=== PATIENT | male | born 1950 | race Caucasian/White ===

== ENCOUNTER → 2016-11-04 | Outpatient (CLI) | payer MEDICARE, OTHER ==
--- NOTE | 2016-11-04 15:57 | US ---
LOWER EXTREMITY VENOUS INSUFFICIENCY SIDE PERFORMED: Bilateral 1) Color flow is present and patency is documented in the following vessels. No DVT or SVT is noted . ? EIV ? Common Femoral Vein ? Deep Femoral Vein ? Femoral Vein ? Popliteal Vein ? Proximal Calf Veins ? Greater Saph Vein ? Upper Small Saph Vein 2) There is venous reflux noted at the following venous levels: Left EIV IMPRESSION: 1. Venous insufficiency at the left external iliac vein. 2. No deep venous thrombosis noted during this examination
--- NOTE | 2016-11-12 14:06 | P.ARTDOP ---
Arterial Doppler LOWER EXTREMITY ARTERIAL DOPPLER: DATE OF SERVICE: 11/04/2016 Reason for study: Left leg pain. Doppler waveforms: Multiphasic throughout bilaterally. Pulse volume recording: Normal configuration. Pressure gradients: None. Ankle-brachial indices: Greater than 1 bilaterally. Toe pressures: 135 on the right, 104 on the left Impression: Normal study.
== END | disposition home or self-care (01) ==
LOC: RADUSWWP 14:07
PROVIDERS: ATTEND Podiatrist
DX: I87.2 Venous insufficiency (chronic) (peripheral) (principal)
CPT/HCPCS: 93923; 93970

== ENCOUNTER 2017-11-25 11:21 | Day surgery (SDC) | payer MEDICARE, OTHER ==
[2017-11-19 13:36] VITALS: BMI 22.4
[~2017-11-25 11:21] MED LIST: DEXAMETHASONE SOD PHOSPHATE 10 MG/ML 1 ML VIAL IV ONE; LACTATED RINGERS 1,000 ML IV SCH; MORPHINE SULFATE 4 MG/0.8 ML SYRINGE (INJ) IV PRN; ONDANSETRON ODT 4 MG TAB PO ONE; ceFAZolin IN SWFI 2 GM/20 ML SYRINGE IVP ONE
--- NOTE | 2017-11-25 11:22 | P.GSHP ---
History of Present Illness H&P Date: 11/25/17 Chief Complaint: Left leg ulcer The patient has an ulcer on the lateral left lower leg which has been refractory to healing. - Constitutional Constitutional: Denies chills, Denies fever - EENT Eyes: denies blurred vision, denies pain Ears, nose, mouth and throat: Denies headache, Denies sore throat - Cardiovascular Cardiovascular: Denies chest pain, Denies shortness of breath - Respiratory Respiratory: Denies cough, Denies cough with sputum, Denies hemoptysis - Gastrointestinal Gastrointestinal: Denies abdominal pain, Denies coffee ground emesis, Denies diarrhea, Denies hematemesis, Denies jaundice, Denies nausea, Denies vomiting - Genitourinary (Female) Genitourinary: Denies dysuria, Denies hematuria - Genitourinary (Male) Genitourinary: Denies dysuria, Denies hematuria - Musculoskeletal Musculoskeletal: Denies myalgias - Integumentary Integumentary: Denies pruritus, Denies rash - Neurological Neurological: Denies numbness, Denies weakness - Psychiatric Psychiatric: Denies anxiety, Denies depression - Endocrine Endocrine: Denies fatigue, Denies weight change - Hematologic/Lymphatic Hematologic/Lymphatic: Denies easy bleeding, Denies easy bruising, Denies lymphedema - Allergic/Immunologic Allergic/Immunologic: Denies anaphylaxis, Denies angioedema, Denies urticaria Past Medical History Past Medical History: Musculoskeletal Disorder, Vascular Disorder Additional Past Medical History / Comment(s): left leg wound, has dressing toes to knees History of Any Multi-Drug Resistant Organisms: None Reported Past Surgical History: No Surgical Hx Reported Additional Past Surgical History / Comment(s): states left leg "vein stripping" left leg wound center procedures Past Anesthesia/Blood Transfusion Reactions: No Reported Reaction Smoking Status: Former smoker - Past Family History Mother Family Medical History: Diabetes Mellitus Father Family Medical History: Cancer Medications and Allergies Home Medications Medication Instructions Recorded Confirmed Type HYDROcodone/APAP 10-325MG [[place] 1 tab PO Q6H PRN 10/17/16 11/19/17 History 10-325] Meloxicam [Mobic] 15 mg PO DAILY 10/17/16 11/19/17 History Multivitamin [Men's Multi-Vitamin] 1 tab PO DAILY 03/17/17 04/19/18 History Thiamine [Vitamin B-1] 1 tab PO DAILY 10/17/16 11/19/17 History tiZANidine [Zanaflex] 4 mg PO Q6HR PRN 10/17/16 11/19/17 History traZODone HCL [Desyrel] 100 mg PO HS 10/17/16 11/19/17 History Lactose-Reduced Food [Ensure Plus] 1 can PO DAILY 07/17/17 11/19/17 History Allergies Allergy/AdvReac Type Severity Reaction Status Date / Time No Known Allergies Allergy Verified 11/19/17 13:30 Surgical - Exam Osteopathic Statement: *. No significant issues noted on an osteopathic structural exam other than those noted in the History and Physical/Consult. - General well developed, well nourished, no distress - Eyes normal ocular movement, no icteric - ENT no hearing loss, no congestion - Neck no masses, trachea midline - Respiratory normal respiratory effort, clear to auscultation - Abdomen Abdomen: soft, non tender, no guarding, no rigid, no rebound - Integumentary 3 x 1.5 cm ulcer lateral left lower leg no rash, no abnormal pigmentation - Neurologic no disoriented, no combative - Musculoskeletal normal gait, normal posture - Psychiatric oriented to time, oriented to person, oriented to place, speech is normal, memory intact Assessment and Plan (1) Ulcer of left lower extremity with fat layer exposed Status: Acute Code(s): L97.922 - NON-PRS CHR UL UNSP PRT OF L LOW LEG W FAT LAYER EXPOSED SNOMED Code(s): 24818730 Plan: Patient is admitted for split-thickness skin graft left lower leg.
[2017-11-25 11:59] VITALS: RESP 16; TEMP 97.9
[2017-11-25] MEDS ORDERED: LIDOCAINE 1% 20 ML VIAL (10MG/ML) FOR IV START INTRADERMA ONE (12:15)
[2017-11-25] MEDS ORDERED: LIDOCAINE 1% INJ 10MG/ML (20 ML MDV) ONE (13:05)
[2017-11-25] MEDS ORDERED: fentaNYL (PF) 50 MCG/ML 2 ML AMP ONE (13:05)
[2017-11-25] MEDS ORDERED: PROPOFOL 10 MG/ML 20 ML VIAL IV ONE (13:05)
[2017-11-25] MEDS ORDERED: MIDAZOLAM 2 MG/2 ML VIAL ONE (13:05)
--- NOTE | 2017-11-25 13:49 | P.PCN ---
Date of Procedure: 11/25/17 Preoperative Diagnosis: Chronic ulcer lateral left lower leg with fatty layer exposed Postoperative Diagnosis: Same Procedure(s) Performed: Split-thickness skin graft Anesthesia: MAC Surgeon: Uli Garcia Estimated Blood Loss (ml): 10 Pathology: none sent Condition: stable Disposition: PACU Indications for Procedure: The patient has chronic ulcer on the lateral left lower leg. Operative Findings: The ulcers about 3 x 1 cm and 0.1 cm in depth Description of Procedure: With the patient in supine position, under benefit of IV sedation, we prepped and draped in sterile fashion. We used a sharp curette and removed all excess granulation tissue and loose debris in the area over the lateral aspect of the right lower leg at the ulceration. Pre-debridement dimensions and postoperative dimensions are both about 3 x 1 cm and 0.1 cm in depth. We then harvested a 1.5" x 1" portion of skin with the dermatome set at 10 1000s. This was meshed 3-1. It was placed over the ulceration angulated to cover the entire ulcer. Over this we placed a Adaptic touch. This was anchored in place using Steri-Strips in a window pained fashion. We then placed hydrogel over the ulcer. We placed a absorptive silver and more hydrogel over this. Gauze dressing and Addy wrap were placed. The patient tolerated the procedure well. He was taken recovery room in stable condition.
[2017-11-25 14:18] VITALS: BP 114/65; PULSE 64
== END 2017-11-25 14:51 | disposition home or self-care (01) ==
LOC: OR 11:21
PROVIDERS: ATTEND Thoracic Surgery (Cardiothoracic Vascular Surgery)
DX: L97.822 Non-pressure chronic ulcer of other part of left lower leg with fat layer exposed (principal); I83.028 Varicose veins of left lower extremity with ulcer other part of lower leg; Z87.891 Personal history of nicotine dependence; Z79.1 Long term (current) use of non-steroidal anti-inflammatories (NSAID); Z79.899 Other long term (current) drug therapy
CPT/HCPCS: 15100; J2250; J1100; J2001; J3010; J2704; J0690

== ENCOUNTER 2018-06-27 14:48 | Emergency (ER) | payer MEDICARE ==
[2018-06-27] MEDS ORDERED: MORPHINE SULFATE 4 MG/ML SYRINGE IV STA (15:34)
[2018-06-27] MEDS ORDERED: ONDANSETRON 4 MG/2 ML VIAL IVP STA (15:34)
[2018-06-27] MEDS ORDERED: SODIUM CHLORIDE 0.9% 1,000 ML IV STA (15:34)
[2018-06-27 16:07] LABS: Basophils % (A) 0 %; Eosinophils # (A) 0.1 k/uL (0-0.7); Eosinophils % (A) 1 %; HCT 43.3 % (39.0-53.0); HGB 14.4 gm/dL (13.0-17.5); Lymphocytes # (A) 1.4 k/uL (1.0-4.8); Lymphocytes % (A) 15 %; MCH 30.3 pg (25.0-35.0); MCHC 33.1 g/dL (31.0-37.0); MCV 91.5 fL (80.0-100.0); Mean Platelet Volume 6.9; Monocytes # (A) 0.4 k/uL (0-1.0); Monocytes % (A) 4 %; Neutrophils # (A) 7.3 k/uL (1.3-7.7); Neutrophils % (A) 79 %; Platelet Count 236 k/uL (150-450); RBC 4.74 m/uL (4.30-5.90); RDW 13.8 % (11.5-15.5); WBC 9.3 k/uL (3.8-10.6)
--- NOTE | 2018-06-27 16:09 | XR ---
EXAMINATION TYPE: XR tibia fibula LT DATE OF EXAM: 06/27/2018 CLINICAL HISTORY: Soft tissue ulcerations. TECHNIQUE: Two views of the left leg are obtained. COMPARISON: None. FINDINGS: There is no acute fracture or dislocation seen in the left tibia or fibula. The left knee and ankle joints appear within normal limits. The overlying soft tissue appears unremarkable. No funk bcutaneous emphysema, radiopaque foreign body, or osseous erosion is noted. IMPRESSION: There is no acute fracture or dislocation seen in the left tibia or fibula. No sequela o f osteomyelitis radiographically.
[2018-06-27 16:19] LABS: ALT 26 U/L (21-72); AST 31 U/L (17-59); Albumin 4.1 g/dL (3.5-5.0); Alkaline Phosphatase 63 U/L (38-126); Anion Gap 8 mmol/L; Blood Urea Nitrogen 18 mg/dL (9-20); Calcium 9.6 mg/dL (8.4-10.2); Carbon Dioxide 23 mmol/L (22-30); Chloride 110 mmol/L (98-107); Glucose 124 mg/dL (74-99); Potassium 3.9 mmol/L (3.5-5.1); Sodium 141 mmol/L (137-145); Total Bilirubin 1.9 mg/dL (0.2-1.3); Total Protein 7.7 g/dL (6.3-8.2)
--- NOTE | 2018-06-27 16:25 | ED ---
General Adult HPI - General Chief complaint: Wound/Laceration Stated complaint: wound Time Seen by Provider: 06/27/18 15:20 Source: patient, RN notes reviewed Mode of arrival: wheelchair Limitations: no limitations - History of Present Illness Initial comments: Patient's a 68-year-old male presenting to the emergency room today with a chief complaint of possible infection to left lower leg. Patient does not that he's had some chronic ulcers to this leg over the last few years that he's been following up with wound care. Patient does admit that he was recently on antibiotics about one month ago. Patient does admit that there was improvement in these wounds. He states he was just an ulcer that was left over the last few days has noticed has a good idea he's had 3 new ulcers show up in the last few days. Patient denies any injury or trauma. Denies any other complaints. Patient denies any recent fever, chills, shortness of breath, chest pain, back pain, abdominal pain, nausea or vomiting, headaches or visual changes, or any other complaints. - Related Data Home Medications Medication Instructions Recorded Confirmed HYDROcodone/APAP 10-325MG [[place] 1 tab PO Q6H PRN 10/17/16 05/25/18 10-325] Meloxicam [Mobic] 15 mg PO DAILY 10/17/16 05/25/18 Multivitamin [Men's Multi-Vitamin] 1 tab PO DAILY 10/17/16 05/25/18 Thiamine [Vitamin B-1] 1 tab PO DAILY 10/17/16 05/25/18 tiZANidine [Zanaflex] 4 mg PO Q6HR PRN 10/17/16 05/25/18 traZODone HCL [Desyrel] 100 mg PO HS 10/17/16 05/25/18 Lactose-Reduced Food [Ensure Plus] 1 can PO DAILY 07/17/17 05/25/18 Previous Rx's Medication Instructions Recorded Cephalexin [Keflex] 500 mg PO Q12HR 10 Days cap 06/27/18 Mupirocin 2% Oint [Bactroban Oint] 1 applic TOPICAL TID #1 gm 06/27/18 Allergies Allergy/AdvReac Type Severity Reaction Status Date / Time No Known Allergies Allergy Verified 06/27/18 14:57 Review of Systems ROS Statement: Those systems with pertinent positive or pertinent negative responses have been documented in the HPI. ROS Other: All systems not noted in ROS Statement are negative. Past Medical History Past Medical History: Musculoskeletal Disorder, Vascular Disorder Additional Past Medical History / Comment(s): left leg wound, has dressing toes to knees History of Any Multi-Drug Resistant Organisms: None Reported Past Surgical History: No Surgical Hx Reported Additional Past Surgical History / Comment(s): states left leg "vein stripping" left leg wound center procedures Past Anesthesia/Blood Transfusion Reactions: No Reported Reaction Past Psychological History: Depression Smoking Status: Former smoker Past Alcohol Use History: None Reported Past Drug Use History: Marijuana - Past Family History Mother Family Medical History: Diabetes Mellitus Father Family Medical History: Cancer General Exam - General Exam Comments Initial Comments: General: The patient is awake and alert, in no distress, and does not appear acutely ill. Ears, nose, mouth and throat: There are moist mucous membranes and no oral lesions. Neck: The neck is supple. Cardiovascular: There is a regular rate and rhythm. No murmur, rub or gallop is appreciated. Respiratory: Lungs are clear to auscultation, respirations are non-labored, breath sounds are equal. No wheezes, stridor, rales, or rhonchi. Musculoskeletal: Normal ROM, no tenderness. Sensation intact. Pedal pulses equal bilaterally 2+. Neurological: A&O x 3. CN II-XII intact, There are no obvious motor or sensory deficits. Coordination appears grossly intact. Speech is normal. Skin: Patient does have superficial ulcers to the left lower leg distally. For ulcers each measuring approximately 2 cm x 1 cm. Superficial with some mild venous oozing from one of the ulcers. Psychiatric: Cooperative, appropriate mood & affect, normal judgment. Limitations: no limitations Course Vital Signs 06/27/18 14:54 Temperature 97.7 F Pulse Rate 101 H Respiratory 18 Rate Blood Pressure 108/68 O2 Sat by Pulse 99 Oximetry Medical Decision Making - Medical Decision Making Patient's x-ray reviewed and shows no evidence for an ostial myelitis. His labs been reviewed no elevated white count. Lactic acid was negative. Culture pending. Patient at this time doing well. Vitals are stable now fever. Case was discussed and seen by dental physician Dr. Smith. Patient will be started on oral antibiotics and discharged home. Advised to continue change dressing at least twice daily. Advised follow-up with Dr. Ken or Dr. Garcia in the next 2 days. Advised to return to emergency room symptoms increase or worsen. - Lab Data Result diagrams: 06/27/18 15:56 06/27/18 15:56 Lab Results 06/27/18 06/27/18 06/27/18 Range/Units 15:56 15:56 15:56 WBC 9.3 (3.8-10.6) k/uL RBC 4.74 (4.30-5.90) m/uL Hgb 14.4 (13.0-17.5) gm/dL Hct 43.3 (39.0-53.0) % MCV 91.5 (80.0-100.0) fL MCH 30.3 (25.0-35.0) pg MCHC 33.1 (31.0-37.0) g/dL RDW 13.8 (11.5-15.5) % Plt Count 236 (150-450) k/uL Neutrophils % 79 % Lymphocytes % 15 % Monocytes % 4 % Eosinophils % 1 % Basophils % 0 % Neutrophils # 7.3 (1.3-7.7) k/uL Lymphocytes # 1.4 (1.0-4.8) k/uL Monocytes # 0.4 (0-1.0) k/uL Eosinophils # 0.1 (0-0.7) k/uL Basophils # 0.0 (0-0.2) k/uL Sodium 141 (137-145) mmol/L Potassium 3.9 (3.5-5.1) mmol/L Chloride 110 H (98-107) mmol/L Carbon Dioxide 23 (22-30) mmol/L Anion Gap 8 mmol/L BUN 18 (9-20) mg/dL Creatinine 0.83 (0.66-1.25) mg/dL Est GFR (CKD-EPI)AfAm >90 (>60 ml/min/1.73 sqM) Est GFR (CKD-EPI)NonAf >90 (>60 ml/min/1.73 sqM) Glucose 124 H (74-99) mg/dL Plasma Lactic Acid Sridhar 1.1 (0.7-2.0) mmol/L Calcium 9.6 (8.4-10.2) mg/dL Total Bilirubin 1.9 H (0.2-1.3) mg/dL AST 31 (17-59) U/L ALT 26 (21-72) U/L Alkaline Phosphatase 63 (38-126) U/L Total Protein 7.7 (6.3-8.2) g/dL Albumin 4.1 (3.5-5.0) g/dL Disposition Clinical Impression: Ulcer of left lower extremity Disposition: HOME SELF-CARE Condition: Good Instructions: Cellulitis (DC) Additional Instructions: Please use antibiotic as prescribed. Please change dressing twice daily and follow-up with doctor in the next 2-5 days. Please return to emergency room if any symptoms increase or worsen. Prescriptions: Cephalexin [Keflex] 500 mg PO Q12HR 10 Days cap Mupirocin 2% Oint [Bactroban Oint] 1 applic TOPICAL TID #1 gm Is patient prescribed a controlled substance at d/c from ED?: No Referrals: Lowell Guzman MD [Primary Care Provider] - 1-2 days Reid Ken MD [STAFF PHYSICIAN] - 1-2 days Uli Garcia DO [Doctor of Osteopathic Medicine] - 1-2 days Time of Disposition: 16:34
[2018-06-27 17:00] LABS: Appearance,Urine Cloudy (Clear); Bilirubin,Urine 1+ (Negative); Blood,Urine Small (Negative); Color,Urine Dark Yellow; Glucose,Urine (UA) Negative (Negative); Hyaline Casts,Urine 18 /lpf (0-2); Ketones,Urine Trace (Negative); Leukocyte Esterase,Urine Negative (Negative); Mucus,Urine Many /hpf; Nitrite,Urine Negative (Negative); Protein,Urine 2+ (Negative); RBC,Urine 13 /hpf (0-5); Specific Gravity,Urine 1.025 (1.001-1.035)
[2018-06-27 17:05] VITALS: BP 127/70; PULSE 79; RESP 16; TEMP 97.9
== END 2018-06-27 17:03 | disposition home or self-care (01) ==
LOC: EC 14:48
DX: L97.829 Non-pressure chronic ulcer of other part of left lower leg with unspecified severity (principal); F32.9 Major depressive disorder, single episode, unspecified; Z87.891 Personal history of nicotine dependence; Z79.1 Long term (current) use of non-steroidal anti-inflammatories (NSAID); Z79.899 Other long term (current) drug therapy
CPT/HCPCS: 36415; 80053; 83605; 85025; 81001; 87040; 87086; 73590; 99283; 96374; 96375; 96361; J2270; J2405

== ENCOUNTER → 2018-07-19 | Outpatient (CLI) | payer MEDICARE ==
[2018-07-21 09:57] VITALS: BMI 24.5
== END | disposition home or self-care (01) ==
LOC: LABWHC1 09:10
PROVIDERS: ATTEND Thoracic Surgery (Cardiothoracic Vascular Surgery)
DX: E63.8 Other specified nutritional deficiencies (principal)
CPT/HCPCS: 97802

== ENCOUNTER 2019-05-27 21:37 | Emergency (ER) | payer MEDICARE ==
[2019-05-27 21:45] VITALS: RESP 18
--- NOTE | 2019-05-27 22:08 | ED ---
Wound/Laceration HPI - General Chief Complaint: Wound/Laceration Stated Complaint: Open Wound Time Seen by Provider: 05/27/19 21:50 Source: patient Mode of arrival: ambulatory Limitations: no limitations - History of Present Illness Initial Comments: Patient is 69-year-old man with history of left lower leg and foot ulcer who is brought for evaluation after he had a dressing change tonight and they noted that there were some maggots in the dressing. The patient states that the ulcer has been present for many months. He had been following at the wound care clinic up until about 2-3 months ago when he started doing his own dressing changes because he felt that the wound care clinic's debridements were too painful for him. The patient denies any systemic symptoms. He has not had fever or chills. He is not having palpitations, dyspnea, diaphoresis. Patient denies left leg pain other then when he is doing the dressing change. -: hour(s) Extremity Location: Left: Lower Leg, Ankle, Foot Patient Tetanus UTD: Yes Context: other (Stasis ulcer) Associated Symptoms: none - Related Data Home Medications Medication Instructions Recorded Confirmed HYDROcodone/APAP 10-325MG [[place] 1 tab PO TID 10/17/16 05/27/19 10-325] Meloxicam [Mobic] 15 mg PO DAILY 10/17/16 05/27/19 Multivitamin [Men's Multi-Vitamin] 1 tab PO DAILY 10/17/16 05/27/19 tiZANidine [Zanaflex] 2 - 4 mg PO HS PRN 10/17/16 05/27/19 traZODone HCL [Desyrel] 100 mg PO HS PRN 10/17/16 05/27/19 Previous Rx's Medication Instructions Recorded Sulfamethox-Tmp 800-160Mg [Bactrim 1 each PO Q12HR #14 tab 05/28/19 Ds] Allergies Allergy/AdvReac Type Severity Reaction Status Date / Time No Known Allergies Allergy Verified 05/27/19 22:24 Review of Systems ROS Statement: Those systems with pertinent positive or pertinent negative responses have been documented in the HPI. ROS Other: All systems not noted in ROS Statement are negative. Constitutional: Denies: fever, chills, weakness Respiratory: Denies: cough, dyspnea Cardiovascular: Denies: chest pain, palpitations, edema, syncope Gastrointestinal: Denies: abdominal pain, vomiting Skin: Reports: as per HPI, other (Chronic leg ulcer) Neurological: Denies: weakness, numbness, paresthesias Past Medical History Past Medical History: Musculoskeletal Disorder, Vascular Disorder Additional Past Medical History / Comment(s): left leg wound, has dressing toes to knees History of Any Multi-Drug Resistant Organisms: None Reported Past Surgical History: No Surgical Hx Reported Additional Past Surgical History / Comment(s): states left leg "vein stripping" left leg wound center procedures Past Anesthesia/Blood Transfusion Reactions: No Reported Reaction Past Psychological History: Depression Smoking Status: Former smoker Past Alcohol Use History: None Reported Past Drug Use History: Marijuana - Past Family History Mother Family Medical History: Diabetes Mellitus Father Family Medical History: Cancer General Exam Limitations: no limitations General appearance: alert, in no apparent distress Head exam: Present: atraumatic, normocephalic Respiratory exam: Present: wheezes (Trace expiratory wheeze). Absent: respiratory distress, rales, rhonchi, stridor, accessory muscle use, decreased breath sounds, prolonged expiratory Cardiovascular Exam: Present: regular rate, normal rhythm, normal heart sounds. Absent: systolic murmur, diastolic murmur, rubs, gallop GI/Abdominal exam: Present: soft. Absent: distended, tenderness, guarding, rebound, rigid, mass Extremities exam: Present: normal capillary refill, other (There are chronic venous stasis changes bilaterally. There is moderately large stasis ulcer to the lower part of the left leg, laterally at the ankle and to the lateral and dorsal part of the midfoot. There does not appear to be any superinfection. There is some granulation tissue forming.). Absent: pedal edema Neurological exam: Present: alert. Absent: motor sensory deficit Skin exam: Present: warm, dry, other (Ulcer as above) Course Vital Signs 05/27/19 21:39 Temperature 98 F Pulse Rate 83 Respiratory 18 Rate Blood Pressure 148/86 O2 Sat by Pulse 94 L Oximetry Medical Decision Making - Lab Data Result diagrams: 05/27/19 22:16 05/27/19 22:16 Lab Results 05/27/19 05/27/19 05/27/19 Range/Units 22:16 22:16 22:16 WBC 8.9 (3.8-10.6) k/uL RBC 4.70 (4.30-5.90) m/uL Hgb 14.1 (13.0-17.5) gm/dL Hct 43.9 (39.0-53.0) % MCV 93.4 (80.0-100.0) fL MCH 30.0 (25.0-35.0) pg MCHC 32.1 (31.0-37.0) g/dL RDW 13.6 (11.5-15.5) % Plt Count 304 (150-450) k/uL Neutrophils % 77 % Lymphocytes % 13 % Monocytes % 4 % Eosinophils % 2 % Basophils % 0 % Neutrophils # 6.8 (1.3-7.7) k/uL Lymphocytes # 1.2 (1.0-4.8) k/uL Monocytes # 0.4 (0-1.0) k/uL Eosinophils # 0.2 (0-0.7) k/uL Basophils # 0.0 (0-0.2) k/uL Sodium 140 (137-145) mmol/L Potassium 3.8 (3.5-5.1) mmol/L Chloride 108 H (98-107) mmol/L Carbon Dioxide 22 (22-30) mmol/L Anion Gap 10 mmol/L BUN 16 (9-20) mg/dL Creatinine 0.72 (0.66-1.25) mg/dL Est GFR (CKD-EPI)AfAm >90 (>60 ml/min/1.73 sqM) Est GFR (CKD-EPI)NonAf >90 (>60 ml/min/1.73 sqM) Glucose 101 H (74-99) mg/dL Plasma Lactic Acid Sridhar 2.2 H* (0.7-2.0) mmol/L Calcium 9.5 (8.4-10.2) mg/dL Total Bilirubin 1.7 H (0.2-1.3) mg/dL AST 26 (17-59) U/L ALT 24 (21-72) U/L Alkaline Phosphatase 66 (38-126) U/L Total Protein 7.5 (6.3-8.2) g/dL Albumin 4.2 (3.5-5.0) g/dL Disposition Clinical Impression: Venous ulcer of left lower extremity without varicose veins Disposition: HOME SELF-CARE Condition: Fair Instructions (If sedation given, give patient instructions): Chronic Wounds (ED) Prescriptions: Sulfamethox-Tmp 800-160Mg [Bactrim Ds] 1 each PO Q12HR #14 tab Is patient prescribed a controlled substance at d/c from ED?: No Referrals: [facility] [NON-STAFF] - 1-2 days None,Stated [REFERRING] - 1-2 days Uli Garcia DO [Doctor of Osteopathic Medicine] - 1-2 days
[2019-05-27 22:36] LABS: Basophils % (A) 0 %; Eosinophils # (A) 0.2 k/uL (0-0.7); Eosinophils % (A) 2 %; HCT 43.9 % (39.0-53.0); HGB 14.1 gm/dL (13.0-17.5); Lymphocytes # (A) 1.2 k/uL (1.0-4.8); Lymphocytes % (A) 13 %; MCHC 32.1 g/dL (31.0-37.0); MCV 93.4 fL (80.0-100.0); Mean Platelet Volume 6.2; Monocytes # (A) 0.4 k/uL (0-1.0); Monocytes % (A) 4 %; Neutrophils # (A) 6.8 k/uL (1.3-7.7); Neutrophils % (A) 77 %; Platelet Count 304 k/uL (150-450); RDW 13.6 % (11.5-15.5); WBC 8.9 k/uL (3.8-10.6)
[2019-05-27 22:43] LABS: ALT 24 U/L (21-72); AST 26 U/L (17-59); African American GFR (CKD) >90 (>60 ml/min/1.73 sqM); Albumin 4.2 g/dL (3.5-5.0); Alkaline Phosphatase 66 U/L (38-126); Anion Gap 10 mmol/L; Blood Urea Nitrogen 16 mg/dL (9-20); Calcium 9.5 mg/dL (8.4-10.2); Carbon Dioxide 22 mmol/L (22-30); Chloride 108 mmol/L (98-107); Glucose 101 mg/dL (74-99); Potassium 3.8 mmol/L (3.5-5.1); Sodium 140 mmol/L (137-145); Total Bilirubin 1.7 mg/dL (0.2-1.3); Total Protein 7.5 g/dL (6.3-8.2)
[2019-05-27] MEDS ORDERED: MORPHINE SULFATE 4 MG/ML SYRINGE IV STA (22:49)
[2019-05-27] MEDS ORDERED: SULFAMETHOX-TMP 800-160MG 1 EACH TAB PO STA (23:34)
[2019-05-27] MEDS ORDERED: HYDROcodone/APAP 10-325MG 1 EACH TAB PO ONE (23:42)
[2019-05-28] MEDS: SODIUM CHLORIDE 0.9% 1,000 ML IV ONE ×2 (00:31→00:32)
[2019-05-28 00:48] VITALS: BP 138/76; PULSE 67; TEMP 98.2
== END 2019-05-28 00:58 | disposition home or self-care (01) ==
LOC: EC 21:37
DX: I87.2 Venous insufficiency (chronic) (peripheral) (principal); R06.2 Wheezing; L92.9 Granulomatous disorder of the skin and subcutaneous tissue, unspecified; Z87.891 Personal history of nicotine dependence; Z79.1 Long term (current) use of non-steroidal anti-inflammatories (NSAID); Z79.891 Long term (current) use of opiate analgesic; Z98.890 Other specified postprocedural states; Z53.20 Procedure and treatment not carried out because of patient's decision for unspecified reasons
CPT/HCPCS: 36415; 80053; 83605; 85025; 87040; 99283; 96374; J2270

== ENCOUNTER → 2022-08-14 | Outpatient (CLI) | payer MEDICARE ==
--- NOTE | 2022-08-15 07:25 | US ---
EXAMINATION TYPE: US venous doppler duplex LE BI DATE OF EXAM: 08/14/2022 4:15 PM COMPARISON: Bilateral lower extremity venous ultrasound 11/04/2016. CLINICAL HISTORY: I70.25 ATHEROSCLEROSIS OF [place] ARTERIES OF OTHER. edema SIDE PERFORMED: Bilateral TECHNIQUE: The lower extremity deep venous system is examined utilizing real time linear array sonog roseanne with graded compression, doppler sonography and color-flow sonography. VESSELS IMAGED: Common Femoral Vein Deep Femoral Vein Greater Saphenous Vein * Femoral Vein Popliteal Vein Small Saphenous Vein * Proximal Calf Veins (* superficial vessels) Grayscale, color doppler, spectral doppler imaging performed of the deep veins of the lower extremiti es. There is normal flow, compressibility, vascular waveforms. Right Leg: Negative for DVT Left Leg: Negative for DVT IMPRESSION: No ultrasound evidence for deep vein thrombosis of the bilateral lower extremities.
--- NOTE | 2022-08-21 11:27 | US ---
EXAMINATION TYPE: US arterial LE multi level DATE OF EXAM: 08/14/2022 4:40 PM CLINICAL HISTORY: I70.25 ATHEROSCLEROSIS OF [place] B[place] ARTERIES OF OTHER. History of: Smoker: previous Hypertension: No Diabetic: Yes Hyperlipidemia: No TIA/CVA: No Previous Vascular Surgery: No CAD: No SC: No Vascular Ulcers: Yes Claudication: No Gangrene: No Doppler Waveforms: Right: Multiphasic Left: Multiphasic Ankle-Brachial Indices: Right: 1.44 Left: 1.34 Toe Brachial Indices: Right: 1.52 Left: 0.94 Unable to do left PT due to bandage. IMPRESSION: 1. VERITO indices are slightly elevated which can be associated with the dense atherosclerotic change of the vasculature correlate clinically.
== END | disposition home or self-care (01) ==
LOC: RADUSWWP 15:32
PROVIDERS: ATTEND Thoracic Surgery (Cardiothoracic Vascular Surgery)
DX: I70.25 Atherosclerosis of native arteries of other extremities with ulceration (principal); I87.333 Chronic venous hypertension (idiopathic) with ulcer and inflammation of bilateral lower extremity; L97.212 Non-pressure chronic ulcer of right calf with fat layer exposed; L97.222 Non-pressure chronic ulcer of left calf with fat layer exposed; L97.312 Non-pressure chronic ulcer of right ankle with fat layer exposed; L97.322 Non-pressure chronic ulcer of left ankle with fat layer exposed
CPT/HCPCS: 93922; 93923; 93970

== ENCOUNTER → 2022-12-11 | Outpatient (CLI) | payer MEDICARE ==
--- NOTE | 2022-12-11 15:03 | XR ---
EXAMINATION TYPE: XR lumbosacral spine min 4V DATE OF EXAM: 12/11/2022 CLINICAL HISTORY: Unspecified low back pain. TECHNIQUE: Frontal, lateral, and oblique images of the lumbar spine are obtained. COMPARISON: None FINDINGS: Osseous structures are demineralized. There are 5 lumbar type vertebral bodies identified. There is a transitional L6 type vertebra which is sacralized on the left. The lumbar spine shows sat isfactory alignment without evidence of acute fracture or dislocation. Vertebral body heights are wi thin normal limits. Mild multilevel disc space narrowing with mild to moderate multilevel anterior and lateral spurring The oblique images appear within normal limits. Mild to moderate overlying arter ial vascular calcification. IMPRESSION: As above.
== END | disposition home or self-care (01) ==
LOC: RADXRMAIN 14:40
PROVIDERS: ATTEND Physical Medicine & Rehabilitation
DX: M51.36 Other intervertebral disc degeneration, lumbar region (principal); I70.8 Atherosclerosis of other arteries
CPT/HCPCS: 72110